=== PATIENT | female | born 1945 | race African-American/Black ===

== ENCOUNTER 2017-06-29 19:59 | Emergency (ER) | payer MEDICARE ==
[~2017-06-29] VITALS: Ht 170.2 cm; Wt 61.2 kg
[~2017-06-29 19:59] MED LIST: BENICAR20 MG ORAL; DIABETA5 MG ORAL; LOVASTATIN20 MG ORAL
[2017-06-29] MEDS ORDERED: UNOBMED (20:14)
[2017-06-29 20:55] VITALS: BP 162/87
[2017-06-29] MEDS ORDERED: TYLENOL EXTRA500 MG ORAL (22:08)
[2017-06-29 22:15] VITALS: BP 155/79
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
== END 2017-06-29 22:15 | disposition home or self-care (01) ==
LOC: EDSEX 19:59 → EMR 20:28
DX: Z04.1 Encounter for examination and observation following transport accident (principal)
CPT/HCPCS: 70450; 99284

== ENCOUNTER 2017-10-31 13:50 | Emergency (ER) | payer MEDICARE ==
[~2017-10-31] VITALS: Ht 172.7 cm; Wt 59.0 kg
[~2017-10-31 13:50] MED LIST changes: +TYLENOL EXTRA500 MG ORAL; +UNOBMED
[2017-10-31 13:58] VITALS: BP 126/83
--- NOTE | 2017-10-31 14:55 | Emergency Room Report ---
History of Present Illness General Chief Complaint: Eye Problems Source: Patient Present Illness HPI 72-year-old female presents to the emergency department complaining of right upper eyelid swelling, erythema and some purulent drainage that has been progressive over the course of 3 days. Patient reports acute onset the morning after wearing false eyelashes. Patient reports some mild itching sensation upon awakening and noticed the swelling and redness as well. Patient states she 's been gently washing her eye and applying warm compresses with no relief. Patient states some of the swelling is traveling down the side of her eye now. Patient denies pain with eye movement she denies photophobia. She denies foreign body sensation. Denies: Pain, Discharge, Redness, Loss of vision, Floaters, Flashing lights, Diplopia/blurry vision, Increased tearing. Denies rashes, swelling of the lips, tongue , throat or airway. Denies wheezing, or shortness of breath. Denies recent travel, recent illness or ill contacts. denies blisters, oral lesions, or sloughing of the skin. Allergies: Coded Allergies: SHABANA INHIBITORS (Unverified Allergy, Unknown, 03/09/14) Patient History Past Medical History: see triage record Past Surgical History: none Pertinent Family History: none Now: No Reviewed Nursing Documentation: PMH: Agreed; PSxH: Agreed Nursing Documentation-PMH Past Medical History: No History, Except For Hx Hypertension: Yes Hx Diabetes: Yes Review of Systems All Other Systems: negative except mentioned in HPI Physical Exam Vital Signs Date Time Temp Pulse Resp B/P (MAP) Pulse Ox O2 Delivery O2 Flow Rate FiO2 10/31/17 13:58 98.3 90 18 126/83 97 Room Air 98.3 Sp02 EP Interpretation: reviewed, normal General Appearance: no apparent distress, alert, GCS 15, non-toxic Head: normocephalic, atraumatic Eyes: right eye lid inflammation; bilateral eye normal inspection, bilateral eye PERRL, bilateral eye EOMI, bilateral eye conjunctivae pale, bilateral eye visual acuity - 20/30, bilateral eye other - swelling, erythema of the upper right eyelid, d/c noted at the lash line. swelling to the lateral aspect of the upper eyelid which is not erythematous. pt. has EOMI, no photophobia, and some purulent lacrimation noted, no injection of conjunctiva. ENT: hearing grossly normal, normal voice Neck: full range of motion Respiratory: lungs clear, normal breath sounds, no wheezing, speaking full sentences Cardiovascular #1: regular rate, rhythm Musculoskeletal: back normal, gait/station normal, normal range of motion, non- tender Neurologic: alert, oriented x3, responsive, motor strength/tone normal, sensory intact, speech normal, grossly normal Psychiatric: judgement/insight normal Skin: normal color, no rash, warm/dry, well hydrated Medical Decision Making PA Attestation Dr. Kraus is my supervising Physician whom patient management has been discussed with. Diagnostic Impression: Primary Impression: Blepharitis of right upper eyelid Qualified Codes: H01.001 - Unspecified blepharitis right upper eyelid ER Course 72-year-old female presents to the emergency department complaining of right upper eyelid swelling, erythema and some purulent drainage that has been progressive over the course of 3 days. Patient reports acute onset the morning after wearing false eyelashes. Patient reports some mild itching sensation upon awakening and noticed the swelling and redness as well. Patient states she 's been gently washing her eye and applying warm compresses with no relief. Patient states some of the swelling is traveling down the side of her eye now. Patient denies pain with eye movement she denies photophobia. She denies foreign body sensation. Denies: Pain, Discharge, Redness, Loss of vision, Floaters, Flashing lights, Diplopia/blurry vision, Increased tearing. Denies rashes, swelling of the lips, tongue , throat or airway. Denies wheezing, or shortness of breath. Denies recent travel, recent illness or ill contacts. denies blisters, oral lesions, or sloughing of the skin. - Pt Denies Contact lens use . Ddx considered but are not limited to: corneal abrasion, acute glaucoma, globe rupture, FB, Corneal Ulcer, conjunctivitis. Iridis Vital signs: are WNL, pt. is afebrile H&PE are most consistent with: blepharitis which progressed to mild cellulitis of the upper lid. there is also swelling to the lateral aspect of the upper eyelid which is not erythematous. pt. has EOMI, no photophobia, and some purulent lacrimation noted, no injection of conjunctiva. ORDERS: Visual Acuity: 20/30 both eyes. ED INTERVENTIONS: none at this time. -D/w this patient outpatient antibiotic treatment as well as medication or allergic reaction. d/w pt. follow up with engraver tender within 3 days or return to the ED with worsening or new symptoms. - medications were explained to pt. along with gentle lid hygiene and to d/c use of false eyelashes. Also recommended to d/c any make up use until her symptoms resolve. DISCHARGE: At this time pt. is stable for d/c to home. Will provide printed patient care instructions, and any necessary prescriptions. Care plan and follow up instructions have been discussed with the patient prior to discharge. . Last Vital Signs Date Time Temp Pulse Resp B/P (MAP) Pulse Ox O2 Delivery O2 Flow Rate FiO2 10/31/17 13:58 98.3 90 18 126/83 97 Room Air 98.2 Disposition: HOME, SELF-CARE Condition: Stable Scripts Erythromycin Base (Erythromycin) 1 Gm Oint...g. 1 APPLIC OP TID for 5 Days, #1 GM Prov: Zora Giles 10/31/17 Trimethoprim/Sulfamethoxazole 160/800* (BACTRIM DS TABLET*) 1 Each Tablet 1 TAB ORAL TWICE A DAY for 7 Days, #14 TAB Prov: Zora Giles 10/31/17 Eyelid Cleanser Combination #1 (STERILID) 48 Ml Foam..ml. 1 APPLIC TP BID, #48 ML Prov: Zora Giles 10/31/17 Olopatadine Hcl (PATADAY) 2.5 Ml Drops 1 DROP OP DAILY, #2.5 ML Prov: Zora Giles 10/31/17 Patient Instructions: Blepharitis Additional Instructions: Take medications as directed. Follow up with a Primary Care Provider or Bead Supervisor within 3 days, even if your symptoms have resolved. --Please review list of primary care clinics, if you do not already have a primary care provider Return sooner to ED if new symptoms occur, or current symptoms become worse. - Please note that this Emergency Department Report was dictated using [employer] technology software, occasionally this can lead to erroneous entry secondary to interpretation by the dictation equipment. Zora Giles Oct 31, 2017 14:55
[2017-10-31] MEDS ORDERED: PATADAY2.5 ML OP (15:02)
[2017-10-31] MEDS ORDERED: BACTRIM DS TAB1 EAC1 ORAL (15:02)
[2017-10-31] MEDS ORDERED: [UNRECOGNIZED DRUG - OTHER] TP (15:02)
[2017-10-31] MEDS ORDERED: ERYTHROMYCIN1 G1 OP (15:02)
[2017-10-31 15:36] VITALS: BP 125/73
== END 2017-10-31 15:35 | disposition home or self-care (01) ==
LOC: EMR 14:45
DX: H01.001 Unspecified blepharitis right upper eyelid (principal); E11.9 Type 2 diabetes mellitus without complications; I10 Essential (primary) hypertension; Z88.8 Allergy status to other drugs, medicaments and biological substances
CPT/HCPCS: 99284